=== PATIENT | female | born 1965 | race Caucasian/White ===

== ENCOUNTER 2021-09-17 08:00 | Outpatient (CLI) | payer OTHER, MEDICAID | END 2021-09-17 08:01 | disposition home or self-care (01) | LOC: LAB.N 08:00 | PROVIDERS: ATTEND Physician Assistant Medical | DX: N30.00 Acute cystitis without hematuria (principal) | CPT/HCPCS: 87086 ==

== ENCOUNTER 2021-09-23 14:17 | Outpatient (CLI) | payer OTHER, MEDICAID | END 2021-09-23 23:59 | disposition home or self-care (01) | LOC: LAB.N 14:17 | PROVIDERS: ATTEND Nurse Practitioner | DX: U07.1 COVID-19 (principal) ==

== ENCOUNTER 2021-10-12 18:41 | Outpatient (CLI) | payer OTHER, MEDICAID | END 2021-10-12 18:42 | disposition critical access hospital (66) | LOC: MERGE 18:41 → EMS 18:41 | DX: R06.02 Shortness of breath (principal); F41.9 Anxiety disorder, unspecified | CPT/HCPCS: A0425; A0427 ==

== ENCOUNTER 2021-10-12 18:57 | Emergency (ER) | payer OTHER, MEDICAID ==
[2021-10-12] MEDS ORDERED: IPRATROPIUM 0.2 MG/ML NEB INH STA (19:34)
[2021-10-12] MEDS ORDERED: ALBUTEROL NEB 2.5 MG/3 ML INH STA (19:34)
--- NOTE | 2021-10-12 19:37 | ED Physician Documentation ---
History of Present Illness - Stated complaint Stated Complaint: SOA/C+ ? - Chief complaint Chief Complaint: Resp - Additonal information Additional information: 55-year-old female presents to the emergency department via EMS for evaluation o f worsening dyspnea in the setting of recent COVID-19 infection. She states that she was diagnosed with COVID on 23 September. However 3 subsequent home tests have been negative. She states that she is having persistent cough and was diagnosed with pneumonia about a week ago and recently completed a Z-Yeyo. However despite this she has persistent shortness of air. On presentation she is quite tachypneic with a respiratory rate in the 40s. She appears to be panting. Patient does have a known speech impediment which causes halting speech. Patient states that her speech is worse than normal. Patient does use BiPAP at night as about 1 year ago she developed respiratory failure and was briefly admitted to [facility] for such. She also has a history of asthma/reactive airway disease for which she uses as needed albuterol and Flovent though she has not used them recently as she recently moved and could not find them. No history of tobacco use. Patient reports that in 2016 she developed colitis and was treated with Levaquin. 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 She does use BiPAP/trilogy at night. Review of Systems Constitutional: denies: Fever, Chills Cardiac: denies: Chest pain / pressure, Palpitations, Pedal edema Respiratory: reports: Dyspnea, Cough, Wheezing GI: reports: Reviewed and negative : reports: Reviewed and negative Skin: reports: Reviewed and negative Musculoskeletal: reports: Reviewed and negative PD PAST MEDICAL HISTORY - Present Medications Home Medications: Ambulatory Orders Medication Instructions Recorded Confirmed guaiFENesin/CODEINE [Robitussin AC] 5 ml PO Q6H PRN #50 ml 10/13/21 - Allergies Allergies/Adverse Reactions: Allergies Allergy/AdvReac Type Severity Reaction Status Date / Time baclofen Allergy Unknown Verified 10/12/21 19:13 cephalexin Allergy Unknown Verified 10/12/21 19:13 floxacillin Allergy Unknown Verified 10/12/21 19:13 lorazepam Allergy Unknown Verified 10/12/21 19:13 morphine Allergy Unknown Verified 10/12/21 19:13 Sulfa (Sulfonamide Allergy Unknown Verified 10/12/21 19:13 Antibiotics) PD ED PE EXPANDED - General General: Alert, Anxious - Cardiac Cardiac: Regular Rate, Radial strong equal, Pedal strong equal. No: Murmur Present - Respiratory Respiratory: Other (Panting breaths. Generally clear but there are a few scattered expiratory wheezes especially in the dependent lung back in the right lung.) - Abdomen Abdomen: Normal Bowel sounds. No: Tender to palpation - Derm Derm: Normal color, Warm and dry. No: Rash - Neuro Neuro: Alert and Oriented X 3, CNII-XII intact. No: Normal speech (Speech impediment) - GCS Eye Opening: Spontaneous Motor: Obeys Commands Verbal: Oriented Total: 15 Results - Vitals Vitals: Vital Signs - 24 hr 10/12/21 10/12/21 10/12/21 19:13 19:18 19:50 Temperature 36.6 C 36.6 C Heart Rate 72 72 71 Respiratory 22 22 20 Rate Blood Pressure 121/85 H 121/85 H O2 Saturation 100 100 10/12/21 10/12/21 10/13/21 20:36 22:00 00:00 Temperature Heart Rate 80 84 79 Respiratory 30 H 28 H 27 H Rate Blood Pressure 136/73 H 133/98 H 128/89 H O2 Saturation 100 100 100 10/13/21 10/13/21 10/13/21 00:56 03:11 04:47 Temperature Heart Rate 81 79 83 Respiratory 26 H 21 Rate Blood Pressure 130/70 136/72 H O2 Saturation 100 99 97 10/13/21 05:25 Temperature Heart Rate 83 Respiratory 21 Rate Blood Pressure 136/72 H O2 Saturation 97 Oxygen O2 Source Room air - Labs Labs: Laboratory Tests 10/12/21 10/12/21 10/12/21 19:30 20:23 20:35 WBC 8.7 RBC 4.71 Hgb 13.6 Hct 41.1 MCV 87.3 MCH 28.9 MCHC 33.1 RDW 13.1 Plt Count 291 MPV 9.0 Neut # (Auto) 5.4 Lymph # (Auto) 2.4 [place] # (Auto) 0.6 Eos # (Auto) 0.2 Baso # (Auto) 0.1 Absolute Nucleated RBC 0.00 Nucleated RBC % 0.0 Bld Gas Analysis Time 2028 Sample Site RIGHT BRACHIAL ABG pH 7.57 H ABG pCO2 25 L* ABG pO2 108 H ABG HCO3 22.0 ABG Total CO2 22.8 ABG O2 Saturation 98 ABG Base Excess 1.6 Andrew Test POSITIVE O2 Delivery Device ROOM AIR Sodium Potassium Chloride Carbon Dioxide Anion Gap BUN Creatinine Estimated GFR (MDRD) Glucose Calcium Total Bilirubin AST ALT Alkaline Phosphatase Total Protein Albumin Globulin Albumin/Globulin Ratio Lipase Urine Opiates Screen Ur Oxycodone Screen Urine Methadone Screen Ur Propoxyphene Screen Ur Barbiturates Screen Ur Tricyclics Screen Ur Phencyclidine Scrn Ur Amphetamine Screen U Methamphetamines Scrn U Benzodiazepines Scrn Urine Cocaine Screen U Cannabinoids Screen SARS-CoV-2 (PCR) DETECTED A 10/12/21 10/12/21 20:35 21:57 WBC RBC Hgb Hct MCV MCH MCHC RDW Plt Count MPV Neut # (Auto) Lymph # (Auto) [place] # (Auto) Eos # (Auto) Baso # (Auto) Absolute Nucleated RBC Nucleated RBC % Bld Gas Analysis Time Sample Site ABG pH ABG pCO2 ABG pO2 ABG HCO3 ABG Total CO2 ABG O2 Saturation ABG Base Excess Andrew Test O2 Delivery Device Sodium 138 Potassium 3.9 Chloride 102 Carbon Dioxide 25 Anion Gap 11.0 BUN 14 Creatinine 0.7 Estimated GFR (MDRD) 87 L Glucose 95 Calcium 9.6 Total Bilirubin 0.7 AST 28 ALT 30 Alkaline Phosphatase 66 Total Protein 7.6 Albumin 4.4 Globulin 3.2 Albumin/Globulin Ratio 1.4 Lipase 32 Urine Opiates Screen NEGATIVE Ur Oxycodone Screen NEGATIVE Urine Methadone Screen NEGATIVE Ur Propoxyphene Screen NEGATIVE Ur Barbiturates Screen NEGATIVE Ur Tricyclics Screen NEGATIVE Ur Phencyclidine Scrn NEGATIVE Ur Amphetamine Screen NEGATIVE U Methamphetamines Scrn NEGATIVE U Benzodiazepines Scrn NEGATIVE Urine Cocaine Screen NEGATIVE U Cannabinoids Screen NEGATIVE SARS-CoV-2 (PCR) - Rads (name of study) cxr Radiology: Final report received (no acute cardiopulmonary process) PD MEDICAL DECISION MAKING - ED course Complexity details: reviewed results, re-evaluated patient, considered differential, d/w patient ED course: 55-year-old female who has a history of muscular weakness for which she uses BiPAP and trilogy at night presents the emergency department with worsening dyspnea. This is in the setting of recent COVID-19 infection which was diagnosed on 23 September. She developed a subsequent pneumonia for which she was treated with azithromycin. She presents to the emergency today with worsening respiratory distress and dyspnea. At times quite tachypneic with respiratory rate in the 40s and 50s. She does also have a history of a speech impediment which seems to be contributing to the symptoms. Patient also does endorse some anxiety though she does not feel that significantly contributing to her symptoms. Chest x-ray at this time is without acute focal opacity. An ABG does show a primary respiratory alkalosis. Her screening electrolytes and chemistry were unrevealing. A urine drug screen is unremarkable as a cause for primary alkalosis Given that she appears anxious she was administered 2 mg of Valium. However this did not seem to appreciably change her symptoms. She remained labored, tachypneic, and panting. However she remains without any hypoxia. We did briefly trial her on BiPAP in the emergency department but again this did not s eem to improve her work of breathing and she remained tachypneic, without hypoxia. She denies pleuritic chest pain. 2044: I did briefly discussed this case with Dr. Mcpherson. Though the patient remains COVID-positive a primary respiratory alkalosis would not reasonably allow the patient to be admitted to the hospital. Though PE is felt to be unlikely, CT angio if the chest is ordered and pending. Pt is signed out to my nighttime colleague Dr. Knight to follow up on the angio and reassessment of her tachypnea. Departure - Departure Disposition: 01 Home, Self Care Clinical Impression: Tachypnea Condition: Good Instructions: ED Dyspnea Shortness of Breath Follow-Up: Lacey Daly PA-C [Primary Care Provider] - (Call to arrange for next available appointment) Prescriptions: guaiFENesin/CODEINE [Robitussin AC] 5 ml PO Q6H PRN #50 ml PRN Reason: Cough Comments: The cause of your symptoms is not apparent at this time, based on tonight's tests. Your COVID test was positive, but it is unlikely that this is causing your shortness of breath, as there are no findings on the chest xray nor the CT scan of your chest that show pneumonia. The CT scan did not show any evidence of a vascular problem such as blood clot in the lung. At this time, no further emergency testing is indicated. A prescription for Robitussin AC (robitussin with codeine) has been provided; this can sometimes help with cough as well as pain. Discharge Date/Time: 10/13/21 05:27
--- NOTE | 2021-10-12 19:38 | XRAY Report ---
PROCEDURE: Chest 1 View X-Ray INDICATIONS: chest pain TECHNIQUE: One view of the chest was acquired. COMPARISON: None FINDINGS: Surgical changes and devices: None. Lungs and pleura: No pleural effusions or pneumothorax. Lungs are clear. Mediastinum: Mediastinal contours appear normal. Heart size is normal. Bones and chest wall: No suspicious bony lesions. Overlying soft tissues appear unremarkable. IMPRESSION: No acute pulmonary process. Reviewed by: Allyn Fuentes MD on 10/12/2021 7:37 PM PDT Approved by: Allyn Fuentes MD on 10/12/2021 7:37 PM PDT Station ID: [id number]
[2021-10-12 20:30] LABS: ABG PH 7.57 (7.35-7.45)
[2021-10-12 20:31] LABS: ABG BASE EXCESS 1.6 mmol/L (-2.0-3.0); ABG OXYGEN SATURATION 98 % (94-98); ABG PO2 108 mmHg (80-100); ABG TCO2 22.8 MMOL/L (21.0-29.0); ALLEN TEST POSITIVE
[2021-10-12 20:34] LABS: ABG PCO2 25 mmHg (34-45)
[2021-10-12 20:38] LABS: BASOPHILS # (AUTO) 0.1 10^3/uL (0.0-0.1); BASOPHILS % (AUTO) 0.9 %; EOSINOPHILS # (AUTO) 0.2 10^3/uL (0.0-0.7); EOSINOPHILS % (AUTO) 2.2 %; HCT - HEMATOCRIT 41.1 % (37.0-47.0); HGB - HEMOGLOBIN 13.6 g/dL (12.0-16.0); LYMPHOCYTES # (AUTO) 2.4 10^3/uL (1.5-3.5); LYMPHOCYTES % (AUTO) 27.9 %; MEAN CORPUSCULAR HEMOGLOBIN 28.9 pg (27.0-31.0); MEAN CORPUSCULAR HGB CONC 33.1 g/dL (32.0-36.0); MEAN CORPUSCULAR VOLUME 87.3 fL (81.0-99.0); MONOCYTES # (AUTO) 0.6 10^3/uL (0.0-1.0); MONOCYTES % (AUTO) 6.8 %; NEUTROPHILS # (AUTO) 5.4 10^3/uL (1.5-6.6); PLT - PLATELET COUNT 291 10^3/uL (130-450); RED BLOOD COUNT 4.71 10^6/uL (4.20-5.40); RED CELL DISTRIBUTION WIDTH 13.1 % (12.0-15.0); WHITE BLOOD COUNT 8.7 x10^3/uL (4.8-10.8)
[2021-10-12 20:49] LABS: ALBUMIN 4.4 g/dL (3.2-5.5); ALBUMIN/GLOBULIN RATIO 1.4 (1.0-2.2); BILIRUBIN,TOTAL 0.7 mg/dL (0.2-1.0); CALCIUM 9.6 mg/dL (8.5-10.3); CREATININE 0.7 mg/dL (0.4-1.0); POTASSIUM 3.9 mmol/L (3.5-5.0); TOTAL PROTEIN 7.6 g/dL (6.7-8.2)
[2021-10-12] MEDS ORDERED: diazePAM INJ 5 MG/ML SYRINGE IVP STA ×2 (21:17→22:47)
[2021-10-12 22:08] LABS: MUDS CUTOFF CONCENTRATIONS CUTOFF CONC BELOW:
[2021-10-12 22:19] LABS: AMPHETAMINE SCREEN,URINE NEGATIVE (NEGATIVE); BARBITURATE SCREEN,UR NEGATIVE (NEGATIVE); BENZODIAZEPINES SCREEN, URINE NEGATIVE (NEGATIVE); COCAINE SCREEN URINE NEGATIVE (NEGATIVE); METHADONE SCREEN, URINE NEGATIVE (NEGATIVE); METHAMPHETAMINES SCREEN, URINE NEGATIVE (NEGATIVE); OPIATE SCREEN, URINE NEGATIVE (NEGATIVE); OXYCODONE SCREEN, URINE NEGATIVE (NEGATIVE); PROPOXYPHENE SCREEN, URINE NEGATIVE (NEGATIVE); THC CANNABINOID SCREEN, URINE NEGATIVE (NEGATIVE); TRICYCLIC ANTIDEPRESSANT,URINE NEGATIVE (NEGATIVE)
[2021-10-12] MEDS ORDERED: IOPAMIDOL-300 100 ML VIAL ONE (22:25)
[2021-10-12] MEDS ORDERED: MIDAZOLAM 2 MG/2 ML VIAL IVP STA (22:48)
[2021-10-12] MEDS ORDERED: SODIUM CHLORIDE 0.9% 500 ML IV STA (23:43)
[2021-10-13] MEDS ORDERED: IOPAMIDOL-300 100 ML VIAL IVP ONE (01:20)
--- NOTE | 2021-10-13 01:32 | CT Report ---
PROCEDURE: ANGIO CHEST W/WO INDICATIONS: Tachypnea; r/o PE CONTRAST: IV CONTRAST: Isovue 300 ml: 80 PO CONTRAST: *NO PO CONTRAST TECHNIQUE: After the administration of intravenous contrast, 2 mm axial images were acquired from the pulmonary apices to the posterior costophrenic angles during the arterial phase. In addition, 1 mm lung kernel and 5 mm soft tissue kernel reconstructions were performed. 3-dimensional coronal oblique maximum int ensity projection (MIP) reformats, 8 mm axial MIP, and 5 mm coronal and sagittal MPR reformats were t hen performed through the thorax. For radiation dose reduction, the following was used: automated exp osure control, adjustment of mA and/or kV according to patient size. COMPARISON: None. FINDINGS: Image quality: There is motion artifact limiting evaluation. Pulmonary arteries: Pulmonary arteries are normal in size, and demonstrate no intraluminal filling d efects to suggest central pulmonary embolism. Evaluation of segmental and subsegmental pulmonary baljeet bonita is limited in the lung bases due to motion artifact. Lungs and pleura: Evaluation limited by motion artifact. There is mild dependent atelectasis. No defi nite focal consolidation No pleural effusions or pneumothorax. Central and peripheral airways are pa tent. Mediastinum: Heart size is normal, without pericardial effusion. No mediastinal or hilar adenopathy . Thoracic aorta is normal in caliber and enhancement. Esophagus is normal in caliber, without hiat al hernia. Bones and chest wall: No suspicious bony lesions. Ribs and thoracic spine appear intact throughout. No axillary or supraclavicular adenopathy. Abdomen: Visualized upper abdominal solid organs appear normal in the early arterial phase of enhanc ement. IMPRESSION: 1. No evidence of central pulmonary embolism, with evaluation of segmental and subsegmental branches in the lung bases limited due to motion artifact. 2. No acute airspace consolidation. Reviewed by: Tyler Carballo MD on 10/13/2021 1:34 AM PDT Approved by: Tyler Carballo MD on 10/13/2021 1:34 AM PDT Station ID: [id number]
[2021-10-13] MEDS ORDERED: guaiFENesin/CODEINE 5 ML UDC PO STA (04:01)
[2021-10-13 04:49] VITALS: BP 136/72
== END 2021-10-13 05:27 | disposition home or self-care (01) ==
LOC: ED 18:57 → MERGE 18:57 → ED 10-13 05:27
DX: U07.1 COVID-19 (principal); R06.82 Tachypnea, not elsewhere classified
CPT/HCPCS: 36415; 36600; 80053; 80306; 82803; 83690; 85025; 94640; 96374; 96375; 99283

== ENCOUNTER 2022-03-19 08:00 | Outpatient (CLI) | payer OTHER, MEDICAID ==
--- NOTE | 2022-03-20 12:54 | XRAY Report ---
PROCEDURE: Chest 2 View X-Ray INDICATIONS: Cough TECHNIQUE: Two views of the chest. COMPARISON: 10/13/2021 FINDINGS: Lungs and pleural spaces clear. Normal heart size. No significant osseous abnormality. IMPRESSION: No acute finding. Reviewed by: Kevin Yun MD on 03/20/2022 12:53 PM PDT Approved by: Kevin Yun MD on 03/20/2022 12:53 PM PDT Station ID: [id number]
== END 2022-03-19 23:59 | disposition home or self-care (01) ==
LOC: DI.N 08:00
PROVIDERS: ATTEND Physician Assistant
DX: R05.3 Chronic cough (principal)

== ENCOUNTER 2022-10-23 07:45 | Outpatient (CLI) | payer OTHER, MEDICAID | END 2022-10-23 07:46 | disposition home or self-care (01) | LOC: LAB.N 07:45 | DX: Z01.89 Encounter for other specified special examinations (principal) | CPT/HCPCS: 36415 ==

== ENCOUNTER 2023-03-19 19:59 | Emergency (ER) | payer MEDICAID, OTHER ==
[2023-03-19 20:34] LABS: BASOPHILS # (AUTO) 0.1 10^3/uL (0.0-0.1); BASOPHILS % (AUTO) 0.8 %; EOSINOPHILS # (AUTO) 0.4 10^3/uL (0.0-0.7); EOSINOPHILS % (AUTO) 4.8 %; HCT - HEMATOCRIT 41.8 % (37.0-47.0); HGB - HEMOGLOBIN 13.4 g/dL (12.0-16.0); LYMPHOCYTES # (AUTO) 2.1 10^3/uL (1.5-3.5); LYMPHOCYTES % (AUTO) 28.3 %; MEAN CORPUSCULAR HEMOGLOBIN 27.8 pg (27.0-31.0); MEAN CORPUSCULAR HGB CONC 32.1 g/dL (32.0-36.0); MEAN CORPUSCULAR VOLUME 86.7 fL (81.0-99.0); MONOCYTES # (AUTO) 0.4 10^3/uL (0.0-1.0); NEUTROPHILS # (AUTO) 4.4 10^3/uL (1.5-6.6); NEUTROPHILS % (AUTO) 59.8 %; PLT - PLATELET COUNT 299 10^3/uL (130-450); RED BLOOD COUNT 4.82 10^6/uL (4.20-5.40); RED CELL DISTRIBUTION WIDTH 13.3 % (12.0-15.0); WHITE BLOOD COUNT 7.3 x10^3/uL (4.8-10.8)
[2023-03-19 20:50] LABS: ALBUMIN 4.5 g/dL (3.2-5.5); ALBUMIN/GLOBULIN RATIO 1.9 (1.0-2.2); BILIRUBIN,TOTAL 0.4 mg/dL (0.2-1.0); CALCIUM 9.7 mg/dL (8.5-10.3); CREATININE 0.7 mg/dL (0.6-1.3); POTASSIUM 3.9 mmol/L (3.5-4.5); TOTAL PROTEIN 6.9 g/dL (6.4-8.9)
[2023-03-20] MEDS ORDERED: ACETAMINOPHEN 325 MG TABLET PO STA (02:30)
[2023-03-20] MEDS ORDERED: PRAMIPEXOLE 0.25 MG TABLET PO STA (03:12)
[2023-03-20] MEDS ORDERED: PRAMIPEXOLE 0.25 MG TABLET PO ONE (03:58)
--- NOTE | 2023-03-20 04:02 | ED Physician Documentation ---
PD HPI ABD PAIN - Stated complaint Stated Complaint: ABD PX - Chief complaint Chief Complaint: Abd Pain - History obtained from History obtained from: Patient - Additional information Additional information: The patient comes to the emergency department chief complaint of upper abdominal pain for the last approximately day and a half. She states that she was somewhat nauseated and thought perhaps she could come down with a viral illness, but then the pain sudden. She states she is the only 1 out of 5 primary female relatives to still have her gallbladder. She is not known to have stones. She denies any changes in her bowel movements. No new urinary symptoms. No fevers or chills. The patient states her appetite has been decreased because the nausea and abdominal pain. No history of ulcers. No other complaints at this time. PD PAST MEDICAL HISTORY - Present Medications Home Medications: Ambulatory Orders Medication Instructions Recorded Confirmed Ondansetron Odt [Zofran] 4 mg TL Q6H PRN #10 tablet 03/20/23 Pramipexole Di-HCl [Mirapex] 1 mg PO DAILY 03/20/23 03/20/23 Pramipexole Di-HCl [Mirapex] 2 mg PO QPM 03/20/23 03/20/23 - Allergies Allergies/Adverse Reactions: Allergies Allergy/AdvReac Type Severity Reaction Status Date / Time baclofen Allergy Unknown Verified 03/19/23 20:07 cephalexin Allergy Unknown Verified 03/19/23 20:07 floxacillin Allergy Unknown Verified 03/19/23 20:07 lorazepam Allergy Unknown Verified 03/19/23 20:07 morphine Allergy Unknown Verified 03/19/23 20:07 Sulfa (Sulfonamide Allergy Unknown Verified 03/19/23 20:07 Antibiotics) PD ED PE NORMAL - Vitals Vital signs reviewed: Yes - General General: Alert and oriented X 3, No acute distress, Well developed/nourished - HEENT HEENT: Atraumatic, PERRL, EOMI, Moist mucous membranes - Neck Neck: Supple, no meningeal sign - Cardiac Cardiac: RRR, No murmur - Respiratory Respiratory: No respiratory distress, Clear bilaterally - Abdomen Abdomen: Soft, Non distended, Other (Moderate tenderness epigastrium and medial right upper quadrant. No rebound or guarding.) - Derm Derm: Warm and dry - Extremities Extremities: No deformity - Neuro Neuro: Alert and oriented X 3 - Psych Psych: Normal mood, Normal affect Results - Vitals Vitals: Vital Signs - 24 hr 03/19/23 03/20/23 03/20/23 20:07 02:05 02:53 Temperature 36.9 C Heart Rate 76 66 67 Respiratory 16 18 16 Rate Blood Pressure 143/80 H 130/77 137/77 H O2 Saturation 99 99 99 03/20/23 05:40 Temperature Heart Rate 58 L Respiratory 20 Rate Blood Pressure 125/72 O2 Saturation 98 Oxygen O2 Source Room air - Labs Labs: Laboratory Tests 03/19/23 03/19/23 03/20/23 20:29 20:29 03:48 WBC 7.3 RBC 4.82 Hgb 13.4 Hct 41.8 MCV 86.7 MCH 27.8 MCHC 32.1 RDW 13.3 Plt Count 299 MPV 9.0 Neut # (Auto) 4.4 Lymph # (Auto) 2.1 [place] # (Auto) 0.4 Eos # (Auto) 0.4 Baso # (Auto) 0.1 Absolute Nucleated RBC 0.00 Nucleated RBC % 0.0 Sodium 140 Potassium 3.9 Chloride 104 Carbon Dioxide 29 Anion Gap 7.0 BUN 18 Creatinine 0.7 Estimated GFR (MDRD) 86 L Glucose 96 Calcium 9.7 Total Bilirubin 0.4 AST 15 ALT 16 Alkaline Phosphatase 86 Total Protein 6.9 Albumin 4.5 Globulin 2.4 Albumin/Globulin Ratio 1.9 Lipase 23 Urine Color YELLOW Urine Clarity CLEAR Urine pH 6.0 Ur Specific [place] 1.015 Urine Protein NEGATIVE Urine Glucose (UA) NEGATIVE Urine Ketones NEGATIVE Urine Occult Blood NEGATIVE Urine Nitrite NEGATIVE Urine Bilirubin NEGATIVE Urine Urobilinogen 0.2 (NORMAL) Ur Leukocyte Esterase NEGATIVE Ur Microscopic Review NOT INDICATED Urine Culture Comments NOT INDICATED - Rads (name of study) CT abdomen and pelvis Relevant Findings:: Final report received, See rad report (Gallbladder, liver, and pancreas normal. Small section of descending colon with thickened wall, could represent colitis.) PD Medical Decision Making - ED course Complexity details: reviewed results, re-evaluated patient, considered differential, d/w patient ED course: The patient's laboratory studies were unremarkable. She was worked up with a CT scan of the abdomen and pelvis because ultrasound was unavailable. This did not show any biliary or pancreatic issues. There is a small section of the descending colon that had a mildly thickened wall and radiologist raise the possibility of colitis; however, this did not fit with the location of the patient's pain or with her other symptoms, and I felt that this was Unlikely clinically to represent colitis. I discussed with the patient her findings and principles of symptomatic management at home. We have discussed the need for follow-up with PCP if after couple weeks the symptoms have not abated, as the patient may need an endoscopy. Departure - Departure Disposition: 01 Home, Self Care Clinical Impression: Abdominal pain Qualifiers: Abdominal location: epigastric Qualified Code(s): R10.13 - Epigastric pain Condition: Stable Instructions: ED Abdominal Pain Female Non-Specific Abdominal Pain Prescriptions: Ondansetron Odt [Zofran] 4 mg TL Q6H PRN #10 tablet PRN Reason: Nausea / Vomiting Comments: Your labs and CT scan look good. There is no evidence of pancreatitis or stones/inflammation in your gallbladder. Most likely, you have some inflammation of the upper stomach and lower esophagus. This could be due to to nausea or reflux of stomach contents. Most of the time, the sorts of things go away on their own but if you feel that it is getting worse after the next couple weeks, you due to failure of primary doctors talk about getting an endoscopy set up and follow-up. For now, you may continue to use antacids such as Maalox or Tums. We have also prescribed a course of antinausea medicine for you to use as needed. The prescription for this has been electronically transmitted to the [facility] pharmacy in [place], your pharmacy of choice on record. You may pick your medication up a little later today. Forms: PCP List Discharge Date/Time: 03/20/23 05:40
[2023-03-20 04:03] LABS: BILIRUBIN,URINE NEGATIVE (NEGATIVE); GLUCOSE, URINE (UA) NEGATIVE (NEGATIVE); KETONES,URINE (UA) NEGATIVE (NEGATIVE); LEUKOCYTE ESTERASE, URINE NEGATIVE (NEGATIVE); NITRITE,URINE NEGATIVE (NEGATIVE); OCCULT BLOOD,URINE NEGATIVE (NEGATIVE); PROTEIN,URINE NEGATIVE (NEGATIVE); UROBILINOGEN,URINE 0.2 (NORMAL) E.U./dL (NORMAL)
[2023-03-20 04:10] LABS: CLARITY,URINE CLEAR (CLEAR)
[2023-03-20] MEDS ORDERED: iohexoL-300 100 ML VIAL IVP ONE (05:04)
[2023-03-20 05:42] VITALS: BP 125/72; O2SAT 98
--- NOTE | 2023-03-20 08:12 | CT Report ---
PROCEDURE: ABDOMEN/PELVIS W INDICATIONS: RUQ abd pain no US avail CONTRAST: Omni 300 100ml TECHNIQUE: After the administration of intravenous contrast, 5 mm thick sections acquired from the diaphragms to the symphysis. 5 mm thick coronal and sagittal reformats were acquired. For radiation dose reducti on, the following was used: automated exposure control, adjustment of mA and/or kV according to almas ent size. COMPARISON: None FINDINGS: Image quality: Excellent. Lung bases and heart: Unremarkable. Liver: No solid mass. Gallbladder and biliary tree: No radiopaque stones or wall thickening. No biliary dilation. Spleen: No splenomegaly. Pancreas: No pancreatic ductal dilation. Adrenals: No adrenal nodule. Kidneys and ureters: No hydronephrosis. No renal cystic lesion which requires follow up. No solid mas s. Bowel and peritoneum: No bowel distension. No pathologic free fluid. Possible wall thickening of the descending colon, without pericolic fat stranding; this is likely due to underdistention. Lymph nodes: No central or retroperitoneal adenopathy. Vessels: No infrarenal aortic aneurysm. PELVIS Reproductive organs: Unremarkable. Bladder: No abnormal wall thickening, accounting for underdistension. Pelvic lymph nodes: No pelvic adenopathy by size criteria. Bones: No aggressive osseous abnormality. Other: Tiny umbilical hernia containing fat. IMPRESSION: No acute abnormality. Findings are concordant with preliminary interpretation provided by [facility]. Reviewed by: Alexis Gaston on 03/20/2023 8:11 AM PDT Approved by: Alexis Gaston on 03/20/2023 8:11 AM PDT Station ID: [id number]
== END 2023-03-20 05:40 | disposition home or self-care (01) ==
LOC: ED 19:59
DX: R10.13 Epigastric pain (principal); R11.0 Nausea
CPT/HCPCS: 36415; 74177; 80053; 81003; 83690; 85025; 99283; 99284; A9270; Q9967; 81001; 87086